=== PATIENT | male | born 1935 | race Two or more races ===

== ENCOUNTER → 2018-02-16 | Outpatient (CLI) | payer MEDICARE ==
[~2018-02-16] MED LIST: FENTANYL PF 100 MCG/2ML ONE; FLUMAZENIL 0.1 MG/1 ML, 5ML ONE; MIDAZOLAM 1 MG/ML, 5ML ONE; NALOXONE 1 MG/ML, 2ML ONE
== END | disposition home or self-care (01) ==
LOC: RAD 08:58
PROVIDERS: ATTEND Family Medicine
DX: M51.36 Other intervertebral disc degeneration, lumbar region (principal); M48.061 Spinal stenosis, lumbar region without neurogenic claudication; M41.86 Other forms of scoliosis, lumbar region; M25.78 Osteophyte, vertebrae; N28.1 Cyst of kidney, acquired; G89.29 Other chronic pain
CPT/HCPCS: 72148; 99156; 99157; J2250; J3010; J2310

== ENCOUNTER → 2018-06-14 | Outpatient (CLI) | payer MEDICARE | END | disposition home or self-care (01) | LOC: RAD 11:55 | PROVIDERS: ATTEND Orthopaedic Surgery | DX: M51.36 Other intervertebral disc degeneration, lumbar region (principal) | CPT/HCPCS: 72120 ==